=== PATIENT | female | born 1950 | race Caucasian/White ===

== ENCOUNTER 2021-05-16 12:01 | Outpatient (CLI) | payer MEDICARE, BC | END 2021-05-16 12:02 | disposition home or self-care (01) | LOC: CSHULT 12:01 | PROVIDERS: ATTEND Family Medicine | DX: L72.9 Follicular cyst of the skin and subcutaneous tissue, unspecified (principal); R22.41 Localized swelling, mass and lump, right lower limb | CPT/HCPCS: 76999 ==

== ENCOUNTER 2023-07-06 07:50 | Outpatient (CLI) | payer MEDICARE, BC ==
[2023-07-06] MEDS ORDERED: Iopamidol 300 61% 100 ML VIAL FS ONE (11:26)
== END 2023-07-06 07:51 | disposition home or self-care (01) ==
LOC: CSHCT 07:50
PROVIDERS: ATTEND Urology
DX: R31.0 Gross hematuria (principal); N32.9 Bladder disorder, unspecified
CPT/HCPCS: 74178; 82565; Q9967

== ENCOUNTER 2023-12-05 09:15 | Outpatient (CLI) | payer MEDICARE, BC | END 2023-12-05 09:16 | disposition home or self-care (01) | LOC: CSHMAMMO 09:15 | PROVIDERS: ATTEND Family Medicine | DX: Z12.31 Encounter for screening mammogram for malignant neoplasm of breast (principal); Z13.820 Encounter for screening for osteoporosis; M81.0 Age-related osteoporosis without current pathological fracture; Z78.0 Asymptomatic menopausal state | CPT/HCPCS: 77063; 77067; 77080 ==